=== PATIENT | male | born 1985 | race Caucasian/White ===

== ENCOUNTER 2016-03-19 12:14 | Emergency (ER) | payer OTHER ==
[2016-03-19 12:56] VITALS: PULSE 65; TEMP 98.1; BMI 25.7
[2016-03-19] MEDS ORDERED: KETOROLAC TROMETHAMINE 30 MG/1 ML VIAL IVPUSH ONE (13:21)
--- NOTE | 2016-03-19 13:26 | PDOC ---
History of Present Illness - General History Source: Patient - History of Present Illness Timing/Duration: reports: other Abdominal Pain Onset Location: reports: flank <Lupillo Harper Last Filed: 03/19/16 15:15> <Mario Acosta - Last Filed: 03/20/16 09:48> - General Chief Complaint: Pain Stated Complaint: ABD PAIN Time Seen by Provider: 03/19/16 12:53 Past History - Past Medical History Other medical history: DENIES. - Psycho/Social/Smoking Cessation Hx Anxiety: No Suicidal Ideation: No Smoking Status: No Smoking History: Current some day smoker Have you smoked in the past 12 months: Yes Number of Cigarettes Smoked Daily: 0 Information on smoking cessation initiated: No <Lupillo Harper Last Filed: 03/19/16 15:15> <Mario Acosta - Last Filed: 03/20/16 09:48> - Past Medical History Allergies/Adverse Reactions: Allergies Allergy/AdvReac Type Severity Reaction Status Date / Time No Known Allergies Allergy Verified 03/19/16 12:51 Home Medications: Ambulatory Orders NK [No Known Home Medication] 03/19/16 Review of Systems - Review of Systems Constitutional: No: Chills, Fever ABD/GI: No: Constipated, Diarrhea, Nausea, Vomiting : Yes: Flank Pain. No: Dysuria, Hematuria <Lupillo Harper Last Filed: 03/19/16 15:15> *Physical Exam - Vital Signs Last Vital Signs Temp Pulse Resp BP Pulse Ox 98.1 F 65 17 156/86 99 03/19/16 12:40 03/19/16 12:40 03/19/16 12:40 03/19/16 12:40 03/19/16 12:40 - Physical Exam General Appearance: Yes: Appropriately Dressed. No: Apparent Distress HEENT: positive: Normal Voice Neck: positive: Supple Respiratory/Chest: negative: Respiratory Distress Gastrointestinal/Abdominal: positive: Normal Bowel Sounds, Tender (to R flank, Nt over mcburneys, no CVAT), Soft. negative: Distended, Guarding, Rebound Musculoskeletal: negative: CVA Tenderness Extremity: positive: Normal Inspection Integumentary: positive: Dry, Warm Neurologic: positive: Fully Oriented, Alert, Normal Mood/Affect <Lupillo Harper - Last Filed: 03/19/16 15:15> - Vital Signs Last Vital Signs Temp Pulse Resp BP Pulse Ox 98.1 F 65 19 140/75 99 03/19/16 12:40 03/19/16 14:51 03/19/16 14:51 03/19/16 14:51 03/19/16 14:51 <DaveMario - Last Filed: 03/20/16 09:48> ED Treatment Course - LABORATORY CBC & Chemistry Diagram: 03/19/16 13:21 03/19/16 13:21 <Lupillo Harper - Last Filed: 03/19/16 15:15> - LABORATORY CBC & Chemistry Diagram: 03/19/16 13:21 03/19/16 13:21 - ADDITIONAL ORDERS Additional order review: 03/19/16 13:21 RBC 5.63 H MCV 86.8 MCHC 33.1 RDW 13.2 MPV 8.7 Neutrophils % 60.8 Lymphocytes % 28.3 Monocytes % 9.6 Eosinophils % 0.8 Basophils % 0.5 - Medications Given in the ED: ED Medications Discontinued Medications Generic Name Dose Route Start Last Admin Trade Name Freq PRN Reason Stop Dose Admin Ketorolac Tromethamine 30 mg 03/19/16 13:21 03/19/16 13:49 Toradol Injection - IVPUSH 03/19/16 13:22 30 mg ONCE ONE Administration <Mario Acosta - Last Filed: 03/20/16 09:48> Medical Decision Making - Medical Decision Making 03/19/16 13:21 31-year-old male, denies any past medical history, here with right flank pain. Patient reports that pain started yesterday. Unable to describe, constant and worse with certain movements. Has not taken anything for pain. States he has similar pain in the past, but on the left side. No dysuria, hematuria, nausea, vomiting, fever, chills or change in bowel movements. Denies any history of kidney stones or gallstones See exam R flank pain Possibly MSK, less likely stone or appy Well myrna and in NAD +ttp to R flank w/ no overt CVAT and no ttp over mcburneys -pain control -labs -ua -?CT 03/19/16 14:36 Labs unremarkable. Patient reports resolution of pain with medication in ED. On reassessment, abd benign, no ttp currently. Will DC with [id number] pain meds as needed. Reasons to return discussed with patient 03/19/16 15:15 <Lupillo Harper - Last Filed: 03/19/16 15:15> - Medical Decision Making 03/20/16 09:48 The patient was seen and evaluated in conjunction with KARYN Herman under my direct supervision, ancillary studies were reviewed. I agree with the plan as outlined by KARYN Herman. <Mario Acosta - Last Filed: 03/20/16 09:48> *DC/Admit/Observation/Transfer <Lupillo Harper - Last Filed: 03/19/16 15:15> <Mario Acosta - Last Filed: 03/20/16 09:48> Diagnosis at time of Disposition: Flank pain - Discharge Dispostion Disposition: HOME Condition at time of disposition: Improved - Patient Instructions Printed Discharge Instructions: Muscle Strain Additional Instructions: Cisco motrin (ibuprofeno) 800 mg cada 6 horas segn sea necesario para el dolor Retorno por empeoramiento de los sntomas Print Language: [place]
[2016-03-19 13:46] LABS: BASOPHIL 0.5 % (0-2.0); EOSINOPHIL 0.8 % (0-4.5); MCH 28.7 pg (25.7-33.7); MCHC 33.1 g/dl (32.0-35.9); MEAN CELL VOLUME 86.8 fl (80-96); MEAN PLT VOLUME 8.7 fl (7.5-11.1); NEUTROPHILS 60.8 % (42.8-82.8); PLATELET COUNT 181 K/MM3 (134-434); RDW 13.2 % (11.9-15.9); WHITE BLOOD COUNT 4.2 K/mm3 (4.0-10.0)
[2016-03-19] MEDS ORDERED: KETOROLAC TROMETHAMINE 30 MG/1 ML VIAL ONE (13:46)
[2016-03-19 14:03] LABS: URINE APPEARANCE CLEAR; URINE BILIRUBIN NEGATIVE (NEGATIVE); URINE BLOOD NEGATIVE (NEGATIVE); URINE COLOR YELLOW; URINE GLUCOSE (UA) NEGATIVE (NEGATIVE); URINE KETONE NEGATIVE (NEGATIVE); URINE LEUK ESTERASE NEGATIVE (NEGATIVE); URINE NITRITE NEGATIVE (NEGATIVE); URINE PROTEIN NEGATIVE (NEGATIVE); URINE UROBILINOGEN NEGATIVE E.U./dl (0.2-1.0)
[2016-03-19 14:12] LABS: ALBUMIN 4.5 g/dl (3.4-5.0); ANION GAP 10 (8-16); BILIRUBIN,TOTAL 0.4 mg/dL (0.2-1.0); CALCIUM 9.2 mg/dL (8.5-10.1); CO2 25 mmol/L (21-32); CREATININE 0.8 mg/dL (0.7-1.3); GLUCOSE,RANDOM 130 mg/dL (74-106); SGOT/AST 29 U/L (15-37); SGPT/ALT 45 U/L (12-78); TOT PROT 8.2 g/dl (6.4-8.2)
[2016-03-19 14:13] LABS: ALK PHOS 85 U/L (45-117)
[2016-03-19 14:52] VITALS: BP 140/75
== END 2016-03-19 14:52 | disposition home or self-care (01) ==
LOC: JER 12:14
PROC: 3E0333Z Introduction of Anti-inflammatory into Peripheral Vein, Percutaneous Approach (ICD-10-PCS; principal; 2016-03-19)
DX: R10.31 Right lower quadrant pain (principal); F17.210 Nicotine dependence, cigarettes, uncomplicated
CPT/HCPCS: 36415; 80053; 81003; 85025; 99282-25